=== PATIENT | male | born 1990 | race Two or more races ===

== ENCOUNTER 2021-01-04 13:30 | Emergency (ER) | payer BC ==
[~2021-01-04] VITALS: Ht 180.3 cm; Wt 85.3 kg
--- NOTE | 2021-01-04 14:12 | NUR ---
LABS DRAWN. PT PROVIDED URINAL. CALL LIGHT WITHIN REACH. AT BS. PT RATING PAIN AT 4/10 RIGHT NOW.
[2021-01-04 14:14] LABS: BASOPHILS % (AUTO) 0 % (0-1); EOSINOPHILS % (AUTO) 3 % (1-7); LYMPHOCYTES % (AUTO) 22 % (22-44); MEAN CORPUSCULAR HEMOGLOBIN 31.4 pg (27.5-34.5); MEAN CORPUSCULAR HGB CONC 33.6 g/dL (33.2-36.2); MEAN PLATELET VOLUME 7.1 fL (7.4-10.4); MONOCYTES % (AUTO) 10 % (2-9); NEUTROPHILS % (AUTO) 64 % (42-75); PLATELET COUNT 238 x10^3/uL (130-400); RED BLOOD COUNT 5.07 x10^6/uL (4.38-5.82); RED CELL DISTRIBUTION WIDTH 14.2 % (9.4-14.8)
--- NOTE | 2021-01-04 14:20 | NUR ---
URINE COLLECTED/SENT TO LAB. VSS/UPDATED IN COMPUTER. CALL LIGHT WITHIN REACH.
[2021-01-04 14:24] LABS: MD NO
[2021-01-04 14:26] LABS: ALANINE AMINOTRANSFERASE 38 U/L (12-78); ANION GAP 5 mmol/L (5-15); CALCIUM 8.7 mg/dL (8.5-10.1); CHLORIDE 110 mmol/L (98-107)
[2021-01-04 14:29] LABS: ALKALINE PHOSPHATASE 94 U/L (45-117); BILIRUBIN,TOTAL 0.3 mg/dL (0.2-1.0); CREATININE 0.93 mg/dL (0.7-1.3); TOTAL PROTEIN 7.4 g/dL (6.4-8.2)
[2021-01-04 14:35] LABS: MICROSCOPIC NOT IND
--- NOTE | 2021-01-04 14:51 | NUR ---
ALL RESULTS BACK, PT FOR RECHECK. REPORT TO AGUSTINA POMPA.
[2021-01-04 14:55] VITALS: BP 137/89
--- NOTE | 2021-01-04 14:55 | NUR ---
REPORT FROM NORMAN POMPA WITH ASSESSMENT PATIENT WITHOUT COMPLAINTS VSS ON NIBP/POX UPDATED ON ESTIMATED POC
--- NOTE | 2021-01-04 15:40 | NUR ---
ERP TO BEDSIDE FOR POC REVIEW/COVID SWAB OBTAINED
== END 2021-01-04 16:14 | disposition home or self-care (01) ==
LOC: ED 16:08
DX: B34.9 Viral infection, unspecified (principal); Z20.822 Contact with and (suspected) exposure to COVID-19
CPT/HCPCS: 36415; 71045; 80053; 81003; 85025; 87081; 87880; 99284; U0003